=== PATIENT | female | born 1995 | race Caucasian/White ===

== ENCOUNTER → 2018-08-09 13:28 | Outpatient (CLI) | payer BC, OTHER, MEDICAID, SELFPAY | PROVIDERS: Visit Provider Physician Assistant | DX: J02.9 Acute pharyngitis, unspecified (principal) | CPT/HCPCS: 87070 ==

== ENCOUNTER 2025-01-09 20:10 | Emergency (ER) | payer SELFPAY ==
[2025-01-09 20:17] VITALS: BP 130/88; PULSE 106; RESP 16; TEMP 36.7; O2SAT 99
--- NOTE | 2025-01-09 21:12 | ED.SKABFB ---
HPI - Skin/Abscess/Foreign Bdy General Chief complaint: Skin/Abscess/Foreign Body Stated complaint: Lt spider bite, swelling ,red Time Seen by Provider: 01/09/25 20:14 Source: patient Mode of arrival: Family Vehicle Limitations: no limitations History of Present Illness HPI narrative: 29-year-old female healthy otherwise with no significant medical history presents with insect bite to left ankle earlier today. Patient notes it got more red and swollen and came in to be evaluated for which she did not take anything for pain prior to arrival. Patient denies fever, chills, body aches, bleeding, discharge, or trauma to the area. Other than what is stated 14 point review of system is negative. Related Data Previous Rx's ?Medication ?Instructions ?Recorded diclofenac sodium 75 mg 75 mg PO BID PRN pain #30 tabs 01/09/25 tablet,delayed release sulfamethoxazole 800 1 tab PO Q12H #14 tabs 01/09/25 mg-trimethoprim 160 mg tablet (Bactrim DS) Allergies Allergy/AdvReac Type Severity Reaction Status Date / Time No Known Drug Allergies Allergy Verified 01/09/25 20:24 Review of Systems Review of Systems ROS Unobtainable: All systems reviewed & are unremarkable except as noted in HPI and below Exam Narrative Exam Narrative: GENERAL: [29] year old patient appears stated age. Well-developed patient, in mild distress. HEAD: Atraumatic. Normocephalic. EYES: Pupils equal round and reactive. Extraocular motions intact. No scleral icterus. No injection or drainage. EXTREMITIES: No edema or joint tenderness. BACK: Nontender without deformity or crepitance. No flank tenderness. NEURO: AOx3. SKIN: RLE lat malleoli red warm tender to palpate quarter-size with no fluctuance or streaking up the leg motor sensory intact with full range of motion of the ankle and foot +2 DP +2 PT cap refill less than 2nd secs Initial Vital Signs Initial Vital Signs: Vital Signs Temperature 98.0 F 01/09/25 20:17 Pulse Rate 106 H 01/09/25 20:17 Respiratory Rate 16 01/09/25 20:17 Blood Pressure 130/88 01/09/25 20:17 Pulse Oximetry 99 01/09/25 20:17 Oxygen Delivery Method Room Air 01/09/25 20:17 Course Vital Signs Vital signs: Vital Signs - 8 hr 01/09/25 20:17 Temperature 98.0 F Pulse Rate 106 H Respiratory Rate 16 Blood Pressure 130/88 Pulse Oximetry 99 Oxygen Delivery Method Room Air MDM - Skin/Abscess/Foreign Bdy MDM Narrative Medical decision making narrative: Vital signs nurse triage note medication list previous ER visits in all imaging studies reviewed. Patient given Bactrim [place] and ibuprofen. DC home on Bactrim and diclofenac. Differential diagnosis includes MRSA cellulitis abscess. Discharge Plan Departure Patient Disposition: Home Clinical Impression: Cellulitis Instructions: DI for Cellulitis -- Adult Activity Restrictions/Additional Instructions: Return with new or worsening symptoms. Take your medicines as directed. Follow up PCP in 1-2 weeks if no improvement in symptoms. Prescriptions: New sulfamethoxazole-trimethoprim [Bactrim DS] 800-160 mg tablet 1 tab PO Q12H Qty: 14 0RF diclofenac sodium 75 mg tablet,delayed release (DR/EC) 75 mg PO BID PRN (Reason: pain) Qty: 30 0RF Stand Alone Forms: Patient Portal/API
[2025-01-09] MEDS: IBUPROFEN 400 MG TABLET 800 MG PO (21:18)
[2025-01-09] MEDS: TRIMETH/SULFA 160/800 (DS) TABLET 1 TAB PO (21:18)
[2025-01-09] MEDS: HYDROCODONE/ACET 5/325 TABLET 1 TAB PO (21:18)
[2025-01-09 21:32] VITALS: BP 134/90; PULSE 88; RESP 14; O2SAT 96
== END 2025-01-09 21:35 | disposition home or self-care (01) ==
PROVIDERS: Emergency Provider Family Medicine
DX: L03.116 Cellulitis of left lower limb (principal)
CPT/HCPCS: 99283